=== PATIENT | female | born 1960 | race Caucasian/White ===

== ENCOUNTER 2016-08-19 14:07 | Emergency (ER) | payer MEDICAID ==
[2008-11-03 18:23] VITALS: BP 111/67
[~2016-08-19] VITALS: Ht 160 cm; Wt 44.5 kg
[~2016-08-19 14:07] MED LIST: ATROVENT INHALE14 GM IH; DONNATAL 10 ML10 ML PO; DOXYCYCLINE 10100 MG PO; FOLIC ACID 11 MG/TA1 PO; GEODON 40MG40 MG PO; GEODON PO; ILOTYCIN5 MG/GM OP; INDERAL PO; KLONOPIN 0.5MG0.5 MG PO; LEXAPRO 10MG10 MG PO; LEXAPRO PO; LORTAB 5/500 501 TAB PO; NICODERM C21 MG/PATC TD; NORCO 325 MG-51 TAB PO; PERCOCET 325 MG1 TA2 PO; PHENERGAN 25 TA25 MG PO; PHENERGAN25 MG RC; PHENOBARBITAL64.8 MG PO; PREDNISONE20 MG PO; PRILOSEC 20MG20 MG PO; REMERON 15M15 MG/TA1 PO; RISPERDAL4 MG PO; ROXICODONE 55 MG/TAB PO; THIAMINE 1100 MG/TAB PO; ULTRAM 50MG TAB50 MG PO; ULTRAM50 MG PO; ZANTAC 150MG T150 MG PO; ZOFRAN4 M1 PO
[2016-08-19 14:09] VITALS: BP 172/94; PULSE 105; TEMP 97.3
[2016-08-19 15:33] LABS: BASO # 0.1 (0.0-0.2); EOS # 0.1 (0.0-0.7); EOS % 1.6 % (0-4.0); GRAN # 4.1 (1.4-6.5); GRAN % 48.3 % (42.2-75.2); HEMATOCRIT 39.3 % (37.0-47.0); HEMOGLOBIN 13.1 g/dl (12.5-16.0); LYMPH # 3.5 (1.2-3.4); MEAN CELL VOLUME 101 fl (80.0-100.0); MEAN CORPUSCULAR HEMOGLOBIN 34 pg (27.0-31.0); MEAN CORPUSCULAR HGB CONC 33 g/dl (33.0-37.0); MEAN PLATELET VOLUME 9.6 fl (7.4-10.4); MONO # 0.6 (0.1-0.6); MONO % 6.9 % (1.7-9.3); PLATELET COUNT 368 K/mm3 (130-400); RED BLOOD COUNT 3.88 M/mm3 (4.10-5.30); REDCELL DISTRIBUTION WIDTH-CV 12.9 % (11.5-14.5); WHITE BLOOD COUNT 8.4 K/mm3 (4.8-10.8)
[2016-08-19 15:37] LABS: INR 0.9 (0.8-3.0)
[2016-08-19 15:53] LABS: PH 5 (5-8); SQUAMOUS EPITHELIAL 0-2 /hpf; URINE APPEARANCE Clear; URINE BACTERIA Rare /hpf; URINE BILIRUBIN Negative (NEGATIVE); URINE BLOOD 1+ (NEGATIVE); URINE COLOR Straw; URINE GLUCOSE Negative (NEGATIVE); URINE KETONE Negative (NEGATIVE); URINE RBC 0-2 /hpf; URINE UROBILINOGEN Negative (NEGATIVE); URINE WBC 0-2 /hpf
[2016-08-19 15:54] LABS: AMMONIA < 9 umol/L (11-35)
[2016-08-19 15:56] LABS: ADJUSTED CALCIUM 10.5 mg/dL (8.4-10.2); ALANINE AMINOTRANSFERASE 70 U/L (9-52); ALBUMIN 4.5 gm/dL (3.5-5.0); ALKALINE PHOSPHATASE 115 U/L (50-136); ANION GAP 15 mmol/L (7-16); BILIRUBIN,TOTAL 0.5 mg/dL (0.0-1.0); BLOOD UREA NITROGEN 17 mg/dL (7-17); CALCIUM 10.9 mg/dL (8.4-10.2); CARBON DIOXIDE 28 mmol/L (22-30); CHLORIDE 104 mmol/L (98-107); CREATININE, serum 0.57 mg/dL (0.52-1.25); GLUCOSE 95 mg/dL (74-106); LIPASE 292 U/L (23-300); POTASSIUM 4.3 mmol/L (3.4-5.0); SODIUM 148 mmol/L (137-145); TOTAL PROTEIN 8.9 gm/dL (6.4-8.2)
[2016-08-19 15:57] LABS: C-REACTIVE PROTEIN < 0.5 mg/dL (0.0-0.9)
[2016-08-19 16:21] LABS: AMPHETAMINE URINE NEGATIVE; BARBITURATES URINE NEGATIVE; BENZODIAZEPINES URINE NEGATIVE; BUPRENORPHINE URINE NEGATIVE; METHADONE URINE NEGATIVE; OPIATES URINE NEGATIVE; OXYCODONE URINE NEGATIVE; PHENCYCLIDINE URINE NEGATIVE; PROPOXYPHENE URINE NEGATIVE; THC CANNABINOIDS URINE NEGATIVE
== END 2016-08-19 15:47 | disposition left against medical advice (07) ==
LOC: COL.ER 14:07
PROVIDERS: Family Medicine
DX: R06.02 Shortness of breath (principal); K62.5 Hemorrhage of anus and rectum; Z53.21 Procedure and treatment not carried out due to patient leaving prior to being seen by health care provider
CPT/HCPCS: J2405; J7030

== ENCOUNTER 2016-08-21 15:44 | Emergency (ER) | payer MEDICAID ==
[2008-11-03 18:23] VITALS: BP 111/67
[~2016-08-21] VITALS: Ht 160 cm; Wt 44.5 kg
[2016-08-21 15:46] VITALS: BP 140/89; PULSE 104; TEMP 97.6
[2016-08-21 16:25] LABS: BASO # 0.1 (0.0-0.2); BASO % 1.4 % (0.0-2.0); EOS # 0.1 (0.0-0.7); GRAN # 2.8 (1.4-6.5); GRAN % 42.8 % (42.2-75.2); HEMOGLOBIN 12.5 g/dl (12.5-16.0); LYMPH # 2.9 (1.2-3.4); LYMPH % 44.6 % (20.0-51.0); MEAN CELL VOLUME 100 fl (80.0-100.0); MEAN CORPUSCULAR HEMOGLOBIN 34 pg (27.0-31.0); MEAN CORPUSCULAR HGB CONC 34 g/dl (33.0-37.0); MEAN PLATELET VOLUME 9.7 fl (7.4-10.4); MONO # 0.6 (0.1-0.6); PLATELET COUNT 302 K/mm3 (130-400); RED BLOOD COUNT 3.69 M/mm3 (4.10-5.30); REDCELL DISTRIBUTION WIDTH-CV 12.7 % (11.5-14.5); WHITE BLOOD COUNT 6.6 K/mm3 (4.8-10.8)
[2016-08-21 16:26] LABS: HEMATOCRIT 36.8 % (37.0-47.0)
[2016-08-21 16:32] LABS: INR 0.8 (0.8-3.0); PROTHROMBIN TIME 9.3 SECONDS (9.7-12.8)
[2016-08-21 16:35] LABS: ADJUSTED CALCIUM 9.5 mg/dL (8.4-10.2); ALANINE AMINOTRANSFERASE 56 U/L (9-52); ALBUMIN 4.4 gm/dL (3.5-5.0); ALKALINE PHOSPHATASE 100 U/L (50-136); ANION GAP 14 mmol/L (7-16); BILIRUBIN,TOTAL 0.6 mg/dL (0.0-1.0); BLOOD UREA NITROGEN 19 mg/dL (7-17); CALCIUM 9.8 mg/dL (8.4-10.2); CARBON DIOXIDE 36 mmol/L (22-30); CHLORIDE 97 mmol/L (98-107); GLUCOSE 99 mg/dL (74-106); LIPASE 328 U/L (23-300); MAGNESIUM 3.2 mg/dL (1.6-2.3); PARTIAL THROMBOPLASTIN TIME 30.8 SECONDS (26.0-37.0); PHOSPHOROUS 2.4 mg/dL (2.5-4.5); SODIUM 147 mmol/L (137-145); TOTAL PROTEIN 8.2 gm/dL (6.4-8.2)
[2016-08-21 16:46] LABS: TROPONIN-I < 0.012 ng/mL (0.000-0.034)
== END 2016-08-21 17:20 | disposition home or self-care (01) ==
LOC: COL.ER 15:44
PROVIDERS: Emergency Medicine
DX: K92.2 Gastrointestinal hemorrhage, unspecified (principal); F10.10 Alcohol abuse, uncomplicated; Y90.8 Blood alcohol level of 240 mg/100 ml or more
CPT/HCPCS: J2405; J3411; J7030

== ENCOUNTER 2016-08-29 13:19 | Emergency (ER) | payer MEDICAID ==
[2008-11-03 18:23] VITALS: BP 111/67
[~2016-08-29] VITALS: Ht 160 cm; Wt 45.5 kg
[2016-08-29 13:20] VITALS: TEMP 98.5
[2016-08-29 14:19] LABS: BASO # 0.1 (0.0-0.2); BASO % 0.9 % (0.0-2.0); EOS % 0.7 % (0-4.0); GRAN # 2.9 (1.4-6.5); HEMOGLOBIN 12.1 g/dl (12.5-16.0); LYMPH # 2.2 (1.2-3.4); LYMPH % 39.5 % (20.0-51.0); MEAN CELL VOLUME 100 fl (80.0-100.0); MEAN CORPUSCULAR HEMOGLOBIN 34 pg (27.0-31.0); MEAN CORPUSCULAR HGB CONC 34 g/dl (33.0-37.0); MEAN PLATELET VOLUME 10.7 fl (7.4-10.4); MONO # 0.4 (0.1-0.6); MONO % 6.7 % (1.7-9.3); PLATELET COUNT 143 K/mm3 (130-400); REDCELL DISTRIBUTION WIDTH-CV 13.6 % (11.5-14.5); WHITE BLOOD COUNT 5.6 K/mm3 (4.8-10.8)
[2016-08-29 14:27] LABS: ADJUSTED CALCIUM 9.5 mg/dL (8.4-10.2); BILIRUBIN,TOTAL 0.6 mg/dL (0.0-1.0); CALCIUM 9.5 mg/dL (8.4-10.2); CREATININE, serum 0.52 mg/dL (0.52-1.25); TOTAL PROTEIN 7.4 gm/dL (6.4-8.2)
[2016-08-29 17:39] VITALS: BP 139/93; PULSE 99
== END 2016-08-29 17:39 | disposition home or self-care (01) ==
LOC: COL.ER 13:19
PROVIDERS: Nurse Practitioner
DX: F10.120 Alcohol abuse with intoxication, uncomplicated (principal); Y90.8 Blood alcohol level of 240 mg/100 ml or more; R10.13 Epigastric pain; R00.0 Tachycardia, unspecified
CPT/HCPCS: J3010; J3411; J3475; J7030

== ENCOUNTER → 2017-01-31 | Outpatient (CLI) | payer MEDICAID ==
[~2017-01-31] MED LIST changes: +AMOXICILLIN 8751 TAB PO; +DECADRON 4MG TAB4 MG PO; +K-DUR20 MEQ PO; +NICODERM C14 MG/PATC TD; +PROTONIX 40MG T40 MG PO; +ROXANOL 20MG20 MG/ML SL; +ZOFRAN 4MG T4 MG/TAB PO
[2017-01-31 15:35] LABS: MEAN CELL VOLUME 96 fl (80.0-100.0); MEAN CORPUSCULAR HGB CONC 33 g/dl (33.0-37.0); MEAN PLATELET VOLUME 9.5 fl (7.4-10.4); PLATELET COUNT 358 K/mm3 (130-400); RED BLOOD COUNT 3.58 M/mm3 (4.10-5.30); WHITE BLOOD COUNT 7.2 K/mm3 (4.8-10.8)
[2017-01-31 15:37] LABS: HEMATOCRIT 34.5 % (37.0-47.0); HEMOGLOBIN 11.4 g/dl (12.5-16.0); MEAN CORPUSCULAR HEMOGLOBIN 32 pg (27.0-31.0)
[2017-01-31 15:44] LABS: ADJUSTED CALCIUM 9.8 mg/dL (8.4-10.2); ALBUMIN 4.5 gm/dL (3.5-5.0); BILIRUBIN,TOTAL 0.5 mg/dL (0.0-1.0); CALCIUM 10.2 mg/dL (8.4-10.2); POTASSIUM 4.8 mmol/L (3.4-5.0); TOTAL PROTEIN 8.4 gm/dL (6.4-8.2)
[2017-01-31 15:57] LABS: CREATININE, serum 0.65 mg/dL (0.52-1.25)
== END ==
LOC: COL.LAB 15:07
DX: Z01.89 Encounter for other specified special examinations (principal)

== ENCOUNTER 2017-02-04 14:41 | Inpatient (IN) | payer MEDICAID ==
[~2017-02-04] VITALS: Ht 160 cm; Wt 55.8 kg
[~2017-02-04 14:41] MED LIST changes: -AMOXICILLIN 8751 TAB PO; -DECADRON 4MG TAB4 MG PO; -K-DUR20 MEQ PO; -NICODERM C14 MG/PATC TD; -PROTONIX 40MG T40 MG PO; -ROXANOL 20MG20 MG/ML SL; -ZOFRAN 4MG T4 MG/TAB PO
[2017-02-04 15:27] LABS: BASO # 0.1 (0.0-0.2); BASO % 0.8 % (0.0-2.0); EOS % 0.2 % (0-4.0); GRAN # 8.3 (1.4-6.5); GRAN % 80.4 % (42.2-75.2); HEMATOCRIT 32.1 % (37.0-47.0); HEMOGLOBIN 10.7 g/dl (12.5-16.0); LYMPH # 1.1 (1.2-3.4); LYMPH % 10.7 % (20.0-51.0); MEAN CELL VOLUME 94 fl (80.0-100.0); MEAN CORPUSCULAR HEMOGLOBIN 31 pg (27.0-31.0); MEAN CORPUSCULAR HGB CONC 33 g/dl (33.0-37.0); MEAN PLATELET VOLUME 9.2 fl (7.4-10.4); MONO # 0.8 (0.1-0.6); MONO % 7.7 % (1.7-9.3); PLATELET COUNT 376 K/mm3 (130-400); RED BLOOD COUNT 3.41 M/mm3 (4.10-5.30); REDCELL DISTRIBUTION WIDTH-CV 12.1 % (11.5-14.5); WHITE BLOOD COUNT 10.3 K/mm3 (4.8-10.8)
[2017-02-04 15:41] LABS: ADJUSTED CALCIUM 9.6 mg/dL (8.4-10.2); ALANINE AMINOTRANSFERASE 26 U/L (9-52); ALBUMIN 4.5 gm/dL (3.5-5.0); ALKALINE PHOSPHATASE 96 U/L (50-136); ANION GAP 17 mmol/L (7-16); BILIRUBIN,TOTAL 0.5 mg/dL (0.0-1.0); BLOOD UREA NITROGEN 16 mg/dL (7-17); C-REACTIVE PROTEIN 1.1 mg/dL (0.0-0.9); CARBON DIOXIDE 21 mmol/L (22-30); CHLORIDE 104 mmol/L (98-107); CREATININE, serum 0.58 mg/dL (0.52-1.25); GLUCOSE 143 mg/dL (74-106); LIPASE 41 U/L (23-300); SODIUM 142 mmol/L (137-145)
[2017-02-04 15:52] LABS: TROPONIN-I < 0.012 ng/mL (0.000-0.034)
[2017-02-04 15:53] LABS: ERYTHROCYTE SEDIMENTATION RATE 56 mm/hr (0-30)
[2017-02-04 16:48] LABS: PH 5 (5-8); SQUAMOUS EPITHELIAL 0-2 /hpf; URINE APPEARANCE Clear; URINE BACTERIA None Seen /hpf; URINE BILIRUBIN Negative (NEGATIVE); URINE BLOOD 2+ (NEGATIVE); URINE COLOR Yellow; URINE GLUCOSE Negative (NEGATIVE); URINE KETONE Negative (NEGATIVE); URINE UROBILINOGEN Negative (NEGATIVE); URINE WBC 0-2 /hpf
[2017-02-04 18:27] VITALS: BP 120/70; PULSE 108; TEMP 97.8
[2017-02-04 18:28] VITALS: BP 12/70; PULSE 105; TEMP 97.8
[2017-02-04 20:14] VITALS: BP 118/83; PULSE 94; TEMP 98.2
[2017-02-05] VITALS (15 sets, daily range): BP systolic 117–155; BP diastolic 57–79; PULSE 67–85; TEMP 97–98.6
[2017-02-06 00:24] VITALS: BP 129/65; PULSE 85; TEMP 98.2
[2017-02-06 03:55] VITALS: BP 126/69; PULSE 97; TEMP 98
[2017-02-06 06:49] LABS: BASO # 0.1 (0.0-0.2); EOS # 0.3 (0.0-0.7); EOS % 4.6 % (0-4.0); GRAN # 3.5 (1.4-6.5); GRAN % 56.1 % (42.2-75.2); LYMPH # 1.8 (1.2-3.4); LYMPH % 27.8 % (20.0-51.0); MEAN CELL VOLUME 96 fl (80.0-100.0); MEAN CORPUSCULAR HGB CONC 33 g/dl (33.0-37.0); MEAN PLATELET VOLUME 9.8 fl (7.4-10.4); MONO # 0.6 (0.1-0.6); MONO % 10.2 % (1.7-9.3); PLATELET COUNT 341 K/mm3 (130-400); RED BLOOD COUNT 3.23 M/mm3 (4.10-5.30); REDCELL DISTRIBUTION WIDTH-CV 12.2 % (11.5-14.5); WHITE BLOOD COUNT 6.3 K/mm3 (4.8-10.8)
[2017-02-06 06:51] LABS: HEMOGLOBIN 10.1 g/dl (12.5-16.0); MEAN CORPUSCULAR HEMOGLOBIN 31 pg (27.0-31.0)
[2017-02-06 07:10] LABS: ADJUSTED CALCIUM 9.6 mg/dL (8.4-10.2); ALBUMIN 3.3 gm/dL (3.5-5.0); BILIRUBIN,TOTAL 0.7 mg/dL (0.0-1.0); CREATININE, serum 0.61 mg/dL (0.52-1.25); POTASSIUM 3.2 mmol/L (3.4-5.0); TOTAL PROTEIN 6.5 gm/dL (6.4-8.2)
[2017-02-06 07:46] VITALS: BP 154/80; PULSE 89; TEMP 98
[2017-02-06 08:07] LABS: MAGNESIUM 1.5 mg/dL (1.6-2.3)
[2017-02-06 11:30] VITALS: BP 149/81; PULSE 87; TEMP 98.7
[2017-02-06 16:32] VITALS: BP 151/80; PULSE 102; TEMP 97.9
[2017-02-06 19:53] VITALS: BP 144/70; PULSE 117; TEMP 98
[2017-02-07 00:48] VITALS: BP 137/69; PULSE 93; TEMP 98.5
[2017-02-07 03:26] VITALS: BP 140/72; PULSE 87; TEMP 97.9
[2017-02-07 07:28] VITALS: BP 146/82; PULSE 81; TEMP 97.1
[2017-02-07] MEDS ORDERED: AMOXICILLIN 8751 TAB PO (09:19)
[2017-02-07] MEDS ORDERED: NICODERM C14 MG/PATC TD (09:20)
[2017-02-07] MEDS ORDERED: DECADRON 4MG TAB4 MG PO (09:21)
[2017-02-07] MEDS ORDERED: PROTONIX 40MG T40 MG PO (09:22)
[2017-02-07] MEDS ORDERED: K-DUR20 MEQ PO (09:24)
[2017-02-07] MEDS ORDERED: ZOFRAN 4MG T4 MG/TAB PO (09:27)
[2017-02-07 11:33] VITALS: BP 145/71; PULSE 86; TEMP 97.7
[2017-02-07 14:29] VITALS: BP 145/71; PULSE 86; TEMP 97.7
== END 2017-02-07 14:51 | DRG 445 ==
LOC: COL.ER 14:41 → MEDICAL 17:19
PROVIDERS: Emergency Medicine; Internal Medicine Gastroenterology; Physician Assistant
PROC: 0F798ZZ Dilation of Common Bile Duct, Via Natural or Artificial Opening Endoscopic (ICD-10-PCS; principal; 2017-02-05 16:00)
DX: K83.8 Other specified diseases of biliary tract (principal); C79.31 Secondary malignant neoplasm of brain; C34.12 Malignant neoplasm of upper lobe, left bronchus or lung; E87.2 Acidosis; G81.14 Spastic hemiplegia affecting left nondominant side; Z85.038 Personal history of other malignant neoplasm of large intestine; Z86.19 Personal history of other infectious and parasitic diseases; F17.210 Nicotine dependence, cigarettes, uncomplicated; I34.1 Nonrheumatic mitral (valve) prolapse; F10.10 Alcohol abuse, uncomplicated; E87.6 Hypokalemia
CPT/HCPCS: 99223-AI; 99233-AI; 99239; A9585; C1769; C9113; J0295; J1100; J1170; J1650; J1885; J2250; J2405; J2543; J2704; J3475; J7030; J7050; J8540; Q9967

== ENCOUNTER → 2017-02-10 | Outpatient (CLI) | payer MEDICAID ==
[~2017-02-10] MED LIST changes: +AMOXICILLIN 8751 TAB PO; +DECADRON 4MG TAB4 MG PO; +K-DUR20 MEQ PO; +NICODERM C14 MG/PATC TD; +PROTONIX 40MG T40 MG PO; +ROXANOL 20MG20 MG/ML SL; +ZOFRAN 4MG T4 MG/TAB PO
[2017-02-10 13:58] LABS: CALCIUM 9.8 mg/dL (8.4-10.2); CREATININE, serum 0.54 mg/dL (0.52-1.25); MAGNESIUM 1.8 mg/dL (1.6-2.3)
== END ==
LOC: ZCOL.LAB 13:16
PROVIDERS: Internal Medicine
DX: E61.2 Magnesium deficiency (principal); R79.89 Other specified abnormal findings of blood chemistry

== ENCOUNTER → 2017-02-12 | Outpatient (CLI) | payer MEDICAID ==
[2017-02-12 10:43] LABS: BASO % 0.1 % (0.0-2.0); GRAN # 8.6 (1.4-6.5); GRAN % 84.9 % (42.2-75.2); HEMATOCRIT 37.4 % (37.0-47.0); HEMOGLOBIN 12.3 g/dl (12.5-16.0); LYMPH # 0.8 (1.2-3.4); LYMPH % 7.4 % (20.0-51.0); MEAN CELL VOLUME 96 fl (80.0-100.0); MEAN CORPUSCULAR HEMOGLOBIN 32 pg (27.0-31.0); MEAN CORPUSCULAR HGB CONC 33 g/dl (33.0-37.0); MEAN PLATELET VOLUME 9.6 fl (7.4-10.4); MONO # 0.6 (0.1-0.6); MONO % 6.3 % (1.7-9.3); PLATELET COUNT 493 K/mm3 (130-400); RED BLOOD COUNT 3.91 M/mm3 (4.10-5.30); REDCELL DISTRIBUTION WIDTH-CV 12.6 % (11.5-14.5); WHITE BLOOD COUNT 10.1 K/mm3 (4.8-10.8)
== END ==
LOC: ZCOL.LAB 10:33
PROVIDERS: Internal Medicine
DX: R68.89 Other general symptoms and signs (principal)

== ENCOUNTER → 2017-02-19 | Outpatient (CLI) | payer MEDICAID ==
[2017-02-19 17:14] LABS: BASO % 0.2 % (0.0-2.0); GRAN # 11.2 (1.4-6.5); GRAN % 83.6 % (42.2-75.2); HEMATOCRIT 37.1 % (37.0-47.0); LYMPH # 0.5 (1.2-3.4); LYMPH % 4.1 % (20.0-51.0); MEAN CELL VOLUME 97 fl (80.0-100.0); MEAN CORPUSCULAR HEMOGLOBIN 31 pg (27.0-31.0); MEAN CORPUSCULAR HGB CONC 32 g/dl (33.0-37.0); MEAN PLATELET VOLUME 9.4 fl (7.4-10.4); MONO # 1.2 (0.1-0.6); MONO % 9.2 % (1.7-9.3); PLATELET COUNT 446 K/mm3 (130-400); RED BLOOD COUNT 3.84 M/mm3 (4.10-5.30); WHITE BLOOD COUNT 13.3 K/mm3 (4.8-10.8)
== END ==
LOC: ZCOL.LAB 15:58
PROVIDERS: Internal Medicine
DX: Z01.89 Encounter for other specified special examinations (principal)

== ENCOUNTER 2017-03-14 14:03 | Emergency (ER) | payer MEDICAID ==
[2008-11-03 18:23] VITALS: BP 111/67
[~2017-03-14] VITALS: Ht 160 cm; Wt 44.5 kg
[~2017-03-14 14:03] MED LIST changes: -ROXANOL 20MG20 MG/ML SL
[2017-03-14 14:05] VITALS: TEMP 97.3
[2017-03-14] MEDS ORDERED: ULTRAM 50MG TAB50 MG PO (14:11)
[2017-03-14 14:47] LABS: BASO # 0.1 (0.0-0.2); EOS % 0.3 % (0-4.0); GRAN # 3.8 (1.4-6.5); GRAN % 60.7 % (42.2-75.2); LYMPH # 1.7 (1.2-3.4); LYMPH % 27.3 % (20.0-51.0); MEAN CELL VOLUME 98 fl (80.0-100.0); MEAN CORPUSCULAR HGB CONC 32 g/dl (33.0-37.0); MEAN PLATELET VOLUME 8.6 fl (7.4-10.4); MONO # 0.6 (0.1-0.6); MONO % 9.9 % (1.7-9.3); PLATELET COUNT 537 K/mm3 (130-400); RED BLOOD COUNT 3.63 M/mm3 (4.10-5.30); REDCELL DISTRIBUTION WIDTH-CV 14.2 % (11.5-14.5)
[2017-03-14 14:51] LABS: HEMATOCRIT 35.5 % (37.0-47.0); HEMOGLOBIN 11.5 g/dl (12.5-16.0); MEAN CORPUSCULAR HEMOGLOBIN 32 pg (27.0-31.0)
[2017-03-14 15:11] LABS: BILIRUBIN,TOTAL 0.3 mg/dL (0.0-1.0); C-REACTIVE PROTEIN 0.6 mg/dL (0.0-0.9); CALCIUM 9.1 mg/dL (8.4-10.2); CREATININE, serum 0.52 mg/dL (0.52-1.25); POTASSIUM 3.7 mmol/L (3.4-5.0); TOTAL PROTEIN 7.2 gm/dL (6.4-8.2)
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
[2017-03-14 17:46] VITALS: BP 165/82; PULSE 75
[2017-03-14] MEDS ORDERED: DECADRON 4MG TAB4 MG PO (18:13)
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
== END 2017-03-14 17:55 | disposition home or self-care (01) ==
LOC: COL.ER 14:03
PROVIDERS: Emergency Medicine
DX: F10.10 Alcohol abuse, uncomplicated (principal); Y90.8 Blood alcohol level of 240 mg/100 ml or more; S50.312A Abrasion of left elbow, initial encounter; S50.311A Abrasion of right elbow, initial encounter; R29.898 Other symptoms and signs involving the musculoskeletal system; X58.XXXA Exposure to other specified factors, initial encounter; C79.31 Secondary malignant neoplasm of brain; Z85.038 Personal history of other malignant neoplasm of large intestine; K21.9 Gastro-esophageal reflux disease without esophagitis; F17.200 Nicotine dependence, unspecified, uncomplicated; B19.20 Unspecified viral hepatitis C without hepatic coma; Z92.3 Personal history of irradiation
CPT/HCPCS: J2270; J2405; J3411; J3475; J7030

== ENCOUNTER 2017-03-23 04:18 | Observation (INO) | payer MEDICAID ==
[~2017-03-23] VITALS: Ht 160 cm; Wt 51.9 kg
[2017-03-23 05:01] LABS: BASO % 0.1 % (0.0-2.0); EOS % 0.1 % (0-4.0); GRAN # 12.7 (1.4-6.5); GRAN % 86.9 % (42.2-75.2); HEMATOCRIT 38.8 % (37.0-47.0); LYMPH # 0.6 (1.2-3.4); LYMPH % 4.1 % (20.0-51.0); MEAN CELL VOLUME 96 fl (80.0-100.0); MEAN CORPUSCULAR HEMOGLOBIN 32 pg (27.0-31.0); MEAN CORPUSCULAR HGB CONC 34 g/dl (33.0-37.0); MEAN PLATELET VOLUME 9.8 fl (7.4-10.4); MONO # 1.1 (0.1-0.6); MONO % 7.4 % (1.7-9.3); PLATELET COUNT 205 K/mm3 (130-400); RED BLOOD COUNT 4.04 M/mm3 (4.10-5.30); REDCELL DISTRIBUTION WIDTH-CV 14.3 % (11.5-14.5); WHITE BLOOD COUNT 14.6 K/mm3 (4.8-10.8)
[2017-03-23 05:14] LABS: ADJUSTED CALCIUM 9.4 mg/dL (8.4-10.2); ALANINE AMINOTRANSFERASE 40 U/L (9-52); ALBUMIN 4.3 gm/dL (3.5-5.0); ALKALINE PHOSPHATASE 105 U/L (50-136); ANION GAP 11 mmol/L (7-16); BILIRUBIN,TOTAL 1.1 mg/dL (0.0-1.0); BLOOD UREA NITROGEN 23 mg/dL (7-17); CALCIUM 9.6 mg/dL (8.4-10.2); CARBON DIOXIDE 27 mmol/L (22-30); CHLORIDE 99 mmol/L (98-107); CREATININE, serum 0.54 mg/dL (0.52-1.25); GLUCOSE 114 mg/dL (74-106); LIPASE 277 U/L (23-300); POTASSIUM 3.2 mmol/L (3.4-5.0); SODIUM 137 mmol/L (137-145); TOTAL PROTEIN 7.5 gm/dL (6.4-8.2)
[2017-03-23 05:25] LABS: TROPONIN-I < 0.012 ng/mL (0.000-0.034)
[2017-03-23 05:50] LABS: PH 5 (5-8); SQUAMOUS EPITHELIAL 0-2 /hpf; URINE APPEARANCE Cloudy; URINE BACTERIA Rare /hpf; URINE BILIRUBIN Positive (NEGATIVE); URINE BLOOD Negative (NEGATIVE); URINE COLOR Amber; URINE GLUCOSE Negative (NEGATIVE); URINE KETONE Trace (NEGATIVE); URINE UROBILINOGEN >=4.0 mg/dL (NEGATIVE)
[2017-03-23 10:05] VITALS: BP 144/69; PULSE 98; TEMP 98.2
[2017-03-23 11:47] VITALS: BP 150/71; PULSE 96; TEMP 97.7
[2017-03-23 19:49] VITALS: BP 145/105; PULSE 114; TEMP 98.2
[2017-03-24] MEDS ORDERED: ROXANOL 20MG20 MG/ML SL (09:26)
[2017-03-24 11:25] VITALS: BP 164/85; PULSE 108; TEMP 98.2
== END 2017-03-24 13:45 | disposition home or self-care (01) ==
LOC: COL.ER 04:18 → MEDICAL 07:20
PROVIDERS: Emergency Medicine
DX: C34.91 Malignant neoplasm of unspecified part of right bronchus or lung (principal); C79.31 Secondary malignant neoplasm of brain; I34.1 Nonrheumatic mitral (valve) prolapse; J44.9 Chronic obstructive pulmonary disease, unspecified; K21.9 Gastro-esophageal reflux disease without esophagitis; F17.210 Nicotine dependence, cigarettes, uncomplicated; Z85.038 Personal history of other malignant neoplasm of large intestine; Z85.43 Personal history of malignant neoplasm of ovary; Z90.49 Acquired absence of other specified parts of digestive tract; Z90.710 Acquired absence of both cervix and uterus; Z86.19 Personal history of other infectious and parasitic diseases; Z80.1 Family history of malignant neoplasm of trachea, bronchus and lung; Z82.49 Family history of ischemic heart disease and other diseases of the circulatory system
CPT/HCPCS: 99222-AI; 99232-AI; J2270; J7030; J8540; Q9967

== ENCOUNTER 2017-03-25 16:47 | Emergency (ER) | payer MEDICAID ==
[2008-11-03 18:23] VITALS: BP 111/67
[~2017-03-25] VITALS: Ht 160 cm; Wt 44.5 kg
[~2017-03-25 16:47] MED LIST changes: +ROXANOL 20MG20 MG/ML SL
[2017-03-25 18:20] VITALS: TEMP 98.8
[2017-03-25 18:25] LABS: MEAN CELL VOLUME 97 fl (80.0-100.0); MEAN CORPUSCULAR HGB CONC 33 g/dl (33.0-37.0); MEAN PLATELET VOLUME 9.9 fl (7.4-10.4); PLATELET COUNT 180 K/mm3 (130-400); REDCELL DISTRIBUTION WIDTH-CV 13.9 % (11.5-14.5); WHITE BLOOD COUNT 12.8 K/mm3 (4.8-10.8)
[2017-03-25 18:30] LABS: ADD PATHOLOGY DIFF REVIEW NO; HEMATOCRIT 34.9 % (37.0-47.0); HEMOGLOBIN 11.6 g/dl (12.5-16.0); MEAN CORPUSCULAR HEMOGLOBIN 32 pg (27.0-31.0)
[2017-03-25 18:51] LABS: BAND 3 % (0-10); NEUTROPHILS 96 % (42.0-75.2); PLATELET ESTIMATE NORMAL (NORMAL); POLYCHROMASIA 1+; TOTAL CELLS COUNTED 100
[2017-03-25 18:52] LABS: ANISOCYTOSIS 1+
[2017-03-25 18:53] LABS: ADJUSTED CALCIUM 9.5 mg/dL (8.4-10.2); ALANINE AMINOTRANSFERASE 46 U/L (9-52); ALBUMIN 4.2 gm/dL (3.5-5.0); ALKALINE PHOSPHATASE 106 U/L (50-136); ANION GAP 12 mmol/L (7-16); BILIRUBIN,TOTAL 0.6 mg/dL (0.0-1.0); BLOOD UREA NITROGEN 13 mg/dL (7-17); CALCIUM 9.7 mg/dL (8.4-10.2); CARBON DIOXIDE 24 mmol/L (22-30); CHLORIDE 105 mmol/L (98-107); CREATININE, serum 0.53 mg/dL (0.52-1.25); GLUCOSE 118 mg/dL (74-106); POTASSIUM 3.7 mmol/L (3.4-5.0); SODIUM 141 mmol/L (137-145); TOTAL PROTEIN 7.2 gm/dL (6.4-8.2)
[2017-03-25 19:05] LABS: TROPONIN-I < 0.012 ng/mL (0.000-0.034)
[2017-03-26 02:34] VITALS: BP 140/80
[2017-03-26 10:11] VITALS: PULSE 105
== END 2017-03-26 10:11 | disposition home or self-care (01) ==
LOC: COL.ER 16:47
PROVIDERS: Emergency Medicine
DX: G89.3 Neoplasm related pain (acute) (chronic) (principal); R62.7 Adult failure to thrive; I10 Essential (primary) hypertension; E78.5 Hyperlipidemia, unspecified; F17.210 Nicotine dependence, cigarettes, uncomplicated; Z85.118 Personal history of other malignant neoplasm of bronchus and lung; Z59.0 Homelessness
CPT/HCPCS: J2270; J7030

== ENCOUNTER 2017-08-03 18:36 | Emergency (ER) | payer MEDICAID ==
[2008-11-03 18:23] VITALS: BP 111/67
[~2017-08-03] VITALS: Ht 160 cm; Wt 44.5 kg
[2017-08-03 18:38] VITALS: TEMP 97.2
[2017-08-03 19:28] LABS: BASO # 0.1 (0.0-0.2); BASO % 0.5 % (0.0-2.0); EOS # 0.1 (0.0-0.7); EOS % 0.6 % (0-4.0); GRAN # 8.5 (1.4-6.5); GRAN % 68.4 % (42.2-75.2); HEMATOCRIT 38.1 % (37.0-47.0); LYMPH # 2.9 (1.2-3.4); LYMPH % 23.6 % (20.0-51.0); MEAN CELL VOLUME 92 fl (80.0-100.0); MEAN CORPUSCULAR HEMOGLOBIN 29 pg (27.0-31.0); MEAN CORPUSCULAR HGB CONC 32 g/dl (33.0-37.0); MEAN PLATELET VOLUME 8.5 fl (7.4-10.4); MONO # 0.8 (0.1-0.6); MONO % 6.1 % (1.7-9.3); PLATELET COUNT 623 K/mm3 (130-400); RED BLOOD COUNT 4.13 M/mm3 (4.10-5.30); REDCELL DISTRIBUTION WIDTH-CV 15.7 % (11.5-14.5)
[2017-08-03 19:40] LABS: ALANINE AMINOTRANSFERASE 21 U/L (9-52); ALBUMIN 3.8 gm/dL (3.5-5.0); ALCOHOL(ethanol),MEDICAL 225 mg/dL; ALKALINE PHOSPHATASE 148 U/L (50-136); ANION GAP 14 mmol/L (7-16); AST,SGOT 15 U/L (15-37); BILIRUBIN,TOTAL 0.2 mg/dL (0.0-1.0); BLOOD UREA NITROGEN 6 mg/dL (7-17); CALCIUM 9.8 mg/dL (8.4-10.2); CARBON DIOXIDE 21 mmol/L (22-30); CHLORIDE 105 mmol/L (98-107); CREATININE, serum 0.53 mg/dL (0.52-1.25); GLUCOSE 103 mg/dL (74-106); SODIUM 141 mmol/L (137-145); TOTAL PROTEIN 7.8 gm/dL (6.4-8.2)
[2017-08-03 19:52] LABS: C-REACTIVE PROTEIN 14.1 mg/dL (0.0-0.9); TROPONIN-I < 0.012 ng/mL (0.000-0.034)
[2017-08-03 20:06] LABS: INFLUENZA A NEGATIVE; INFLUENZA B NEGATIVE
[2017-08-03] MEDS ORDERED: DOXYCYCLINE 10100 MG PO (20:32)
[2017-08-03] MEDS ORDERED: ULTRAM 50MG TAB50 MG PO (20:32)
[2017-08-03] MEDS ORDERED: PREDNISONE20 MG PO (21:50)
[2017-08-03 21:51] VITALS: BP 100/89; PULSE 106
== END 2017-08-03 21:50 | disposition left against medical advice (07) ==
LOC: COL.ER 18:36
PROVIDERS: Emergency Medicine
DX: J44.1 Chronic obstructive pulmonary disease with (acute) exacerbation (principal); C34.90 Malignant neoplasm of unspecified part of unspecified bronchus or lung; K21.9 Gastro-esophageal reflux disease without esophagitis; C79.31 Secondary malignant neoplasm of brain; F17.210 Nicotine dependence, cigarettes, uncomplicated; Z87.19 Personal history of other diseases of the digestive system; Z90.710 Acquired absence of both cervix and uterus; Z90.89 Acquired absence of other organs
CPT/HCPCS: J7030

== ENCOUNTER 2017-08-17 22:29 | Emergency (ER) | payer MEDICAID ==
[2008-11-03 18:23] VITALS: BP 111/67
[~2017-08-17] VITALS: Ht 160 cm; Wt 45.5 kg
[2017-08-17 22:39] VITALS: TEMP 97.6
[2017-08-17 22:52] LABS: BASO # 0.1 (0.0-0.2); BASO % 0.7 % (0.0-2.0); EOS # 0.1 (0.0-0.7); EOS % 1.2 % (0-4.0); GRAN # 8.1 (1.4-6.5); GRAN % 71.3 % (42.2-75.2); LYMPH # 1.9 (1.2-3.4); LYMPH % 16.2 % (20.0-51.0); MEAN CELL VOLUME 89 fl (80.0-100.0); MEAN CORPUSCULAR HGB CONC 32 g/dl (33.0-37.0); MONO # 1.2 (0.1-0.6); MONO % 10.2 % (1.7-9.3); PLATELET COUNT 550 K/mm3 (130-400); RED BLOOD COUNT 3.79 M/mm3 (4.10-5.30); REDCELL DISTRIBUTION WIDTH-CV 15.4 % (11.5-14.5)
[2017-08-17 22:55] LABS: HEMATOCRIT 33.7 % (37.0-47.0); HEMOGLOBIN 10.9 g/dl (12.5-16.0); MEAN CORPUSCULAR HEMOGLOBIN 29 pg (27.0-31.0)
[2017-08-17 22:56] LABS: INR 1.3 (0.8-3.0); PROTHROMBIN TIME 14.7 SECONDS (9.7-12.8)
[2017-08-17 22:58] LABS: PARTIAL THROMBOPLASTIN TIME 32.4 SECONDS (26.0-37.0)
[2017-08-17 22:59] LABS: ALANINE AMINOTRANSFERASE 36 U/L (9-52); ALBUMIN 3.8 gm/dL (3.5-5.0); ALCOHOL(ethanol),MEDICAL 206 mg/dL; ALKALINE PHOSPHATASE 141 U/L (50-136); ANION GAP 15 mmol/L (7-16); AST,SGOT 21 U/L (15-37); BILIRUBIN,TOTAL 0.5 mg/dL (0.0-1.0); BLOOD UREA NITROGEN 8 mg/dL (7-17); CALCIUM 9.8 mg/dL (8.4-10.2); CARBON DIOXIDE 22 mmol/L (22-30); CHLORIDE 102 mmol/L (98-107); CREATININE, serum 0.55 mg/dL (0.52-1.25); GLUCOSE 122 mg/dL (74-106); POTASSIUM 3.3 mmol/L (3.4-5.0); SODIUM 139 mmol/L (137-145); TOTAL PROTEIN 7.6 gm/dL (6.4-8.2)
[2017-08-17 23:11] LABS: TROPONIN-I < 0.012 ng/mL (0.000-0.034)
[2017-08-18 01:20] VITALS: BP 116/86; PULSE 99
== END 2017-08-18 01:23 | disposition home or self-care (01) ==
LOC: COL.ER 22:29
PROVIDERS: Emergency Medicine
DX: C34.90 Malignant neoplasm of unspecified part of unspecified bronchus or lung (principal); C79.9 Secondary malignant neoplasm of unspecified site; F10.129 Alcohol abuse with intoxication, unspecified; E87.6 Hypokalemia; R55 Syncope and collapse; J44.9 Chronic obstructive pulmonary disease, unspecified; F17.210 Nicotine dependence, cigarettes, uncomplicated; Y90.7 Blood alcohol level of 200-239 mg/100 ml
CPT/HCPCS: J7030